=== PATIENT | female | born 1995 | race Caucasian/White ===

== ENCOUNTER 2025-07-14 15:15 | Outpatient (CLI) | payer BC, SELFPAY ==
--- OUTSIDE RECORDS SUMMARY | 2025-07-01 02:57 | XMS_ITS | Continuity of Care Document ---
Author Organization [facility] Phone Care Team Providers Care Supervisor [employer] Name Role Phone NO, DEFINED P Primary Care Unavailable AUDREY MENDIOLA Primary Attending AUDREY MENDIOLA Admitting NO, DEFINED P Unavailable Unavailable ALLERGIES AND ADVERSE REACTIONS ALLERGIES AND ADVERSE REACTIONS Code System Allergy Substance Adverse Reaction Date Reaction (Severity) Comment Status Reported By Updated By No Known Allergies [email or web address] on June 29, 2025 4:40:36 AM UTC RESULTS Patient: ALISA Short Date of : 1995 5 LABORATORY RESULTS ORDER 100: CBC AUTO W DIFF ( LOINC: 93128-7) ORDER DATE: June 29, 2025 4:42:00 AM UTC Specimen Source: EDTA Specimen Type: Blood specime n with EDTA PERFORMING LAB: [address] [id number] Result Comment: Final Result Date: June 29, 2025 4:57:00 AM UTC (TECH: AY) LOINC TEST FLAG RESULT REFERENCE RANGE UPDA HARLEY BY 6690-2 Leukocytes [#/volume] in Blood by Automated count H 15.2 K/ul 4.0 K/ul - 10.5 K/ul June 29, 2025 4:57:00 AM UTC (TECH: AY) 789-8 Erythrocytes [#/volume] in Blood by Automated count N 4.8 M/mm3 4.2 M/mm3 - 6.4 M/mm3 June 29, 2025 4:57:00 AM UTC (TECH: AY) 718-7 Hemoglobin [Mass/volume] in Blood N 14.0 gm/dl 12.5 gm/dl - 16.0 gm/dl June 29, 2025 4:57:00 AM UTC (TECH: AY) 22827-1 Hematocrit [Volume Fraction] of Blood N 43.1 % 37.0 % - 47.0 % June 29, 2025 4:57:00 AM UTC (TECH: AY) 787-2 Erythrocyte mean corpuscular volume [Entitic volume] by Automated count N 89.8 fl 78 fl - 100 fl June 29, 2025 4:57:00 AM UTC (TECH: AY) 785-6 Erythrocyte mean corpuscular hemoglobin [Entitic mass] by Automated count N 29.2 pg 27 pg - 31 pg June 29, 2025 4:57:00 AM UTC (TECH: AY) 786-4 Erythrocyte mean corpuscular hemoglobin concentration [Mass/volume] by Automated count N 32.5 g/dl 32 g/dl - 36 g/dl June 29, 2025 4:57:00 AM UTC (TECH: AY) 50219-4 Erythrocyte distribution width [Ratio] N 13.2 % 11.5 % - 14.0 % June 29, 2025 4:57:00 AM UTC (TECH: AY) 777-3 Platelets [#/volume] in Blood by Automated count N 268 K/ul 150 K/ul - 450 K/ul June 29, 2025 4:57:00 AM UTC (TECH: AY) 68649-1 Platelet mean volume [Entitic volume] in Blood by Automated count N 9.5 fl 6 fl - 9.5 fl June 29, 2025 4:57:00 AM UTC (TECH: AY) 09017-8 Neutrophils/100 leukocytes in Blood H 77.3 % 43 % - 65 % June 29, 2025 4:57:00 AM UTC (TECH: AY) 736-9 Lymphocytes/100 leukocytes in Blood by Automated count L 16.3 % 20.5 % - 45.5 % June 29, 2025 4:57:00 AM UTC (TECH: AY) 5905-5 Monocytes/100 leukocytes in Blood by Automated count L 5.3 % 5.5 % - 11.7 % June 29, 2025 4:57:00 AM UTC (TECH: AY) 713-8 Eosinophils/100 leukocytes in Blood by Automated count L 0.1 % 0.9 % - 2.9 % June 29, 2025 4:57:00 AM UTC (TECH: AY) 706-2 Basophils/100 leukocytes in Blood by Automated count N 0.5 % 0.2 % - 1.0 % June 29, 2025 4:57:00 AM UTC (TECH: AY) 65694-0 Immature granulocytes/100 leukocytes in Blood by Automated count N 0.5 % 0.0 % - 0.8 % June 29, 2025 4:57:00 AM UTC (TECH: AY) 96242-9 Nucleated cells [#/volume] in Blood N 0.0 % June 29, 2025 4:57:00 AM UTC (TECH: AY) 68645-1 Neutrophils [#/volume] in Blood H 11.7 K/uL 2.2 K/uL - 4.8 K/uL June 29, 2025 4:57:00 AM UTC (TECH: AY) 731-0 Lymphocytes [#/volume] in Blood by Automated count N 2.5 CELL/MCL 1.3 CELL/MCL - 2.9 CELL/MCL June 29, 2025 4:57:00 AM UTC (TECH: AY) 742-7 Monocytes [#/volume] in Blood by Automated count N 0.8 CELL/MCL 0.3 CELL/MCL - 0.8 CELL/MCL June 29, 2025 4:57:00 AM UTC (TECH: AY) 711-2 Eosinophils [#/volume] in Blood by Automated count N 0.0 CELL/MCL 0 CELL/MCL - 0.2 CELL/MCL June 29, 2025 4:57:00 AM UTC (TECH: AY) 704-7 Basophils [#/volume] in Blood by Automated count N 0.1 CELL/MCL 0.0 CELL/MCL - 1.0 CELL/MCL June 29, 2025 4:57:00 AM UTC (TECH: AY) 63598-9 Immature granulocytes [#/volume] in Blood N 0.07 K/ul June 29, 2025 4:57:00 AM UTC (TECH: AY) 36946-5 Nucleated cells [#/volume] in Blood N 0.00 K/uL June 29, 2025 4:57:00 AM UTC (TECH: AY) 60131-1 Manual Differential panel - Blood N NO June 29, 2025 4:57:00 AM UT (TECH: AY) ORDER 200: COMP METABOLIC PA FERNANDO (LOINC: 10073-2) ORDER DATE: June 29, 2025 4:42:00 AM UT Specimen Source: PLASMA Specimen Type: Plasma specim en PERFORMING LAB: [address] [id number] Result Comment: Final Result Date: June 29, 2025 5:38:00 AM UT (TECH: AY) LOINC TEST FLAG RESULT REFERENCE RANGE UPDA HARLEY BY 2951-2 Sodium [Moles/volume ] in Serum or Plasma N 143 mmol/L 136 mmol/L - 145 mmol/L June 29, 2025 5:15:00 AM UT (TECH: ME) 2823-3 Potassium [Moles/volume] in Serum or Plasma N 3.9 mmol/L 3.6 mmol/L - 5.0 mmol/L June 29, 2025 5:15:00 AM UT (TECH: ME) 2075-0 Chloride [Moles/volume] in Serum or Plasma N 105 mmol/L 98 mmol/L - 107 mmol/L June 29, 2025 5:15:00 AM UT (TECH: ME) 8-9 Carbon dioxide, tota l [Moles/volume] in Serum or Plasma N 30.9 mmol/L 21.0 mmol/L - 32.0 mmol/L June 29, 2025 5:15:00 AM UT (TECH: ME) 55170-1 Anion gap in Blood N 11.0 O ct2024 5:15:00 AM UTC (TECH: ME) 2345-7 Glucose [Mass/volume ] in Serum or Plasma N 112 mg/dl 70 mg/dl - 120 mg/dl June 29, 2025 5:15:00 AM UTC (TECH: ME) 6299-2 Urea nitrogen [Mass/volume] in Blood H 19 mg/dL 7 mg/dL - 18 mg/dL June 29, 2025 5:15:00 AM UT (TECH: ME) 82025-5 Creatinine [Moles/volume] in Blood N 0.8 mg/dL 0.6 mg/dL - 1.3 mg/dL June 29, 2025 5:15:00 AM UTC (TECH: ME) 21703-1 Glomerular filtratio n rate/1.73 sq M.predicted by Creatinine-based formula (MDRD) N 102 mlpermin 60 mlpermin June 29, 2025 5:15:00 AM [facility] (TECH: ME) 15860-0 Osmolality of Serum or Plasma by calculated by sum of electrolytes N 300 mosm/kg 275 mosm/kg - 301 mosm/kg June 29, 2025 5:15:00 AM [facility] (TECH: ME) 2885-2 Protein [Mass/volume ] in Serum or Plasma N 7.5 g/dl 6.4 g/dl - 8.2 g/dl June 29, 2025 5:38:00 AM [facility] (TECH: AY) 1751-7 Albumin [Mass/volume ] in Serum or Plasma N 3.6 g/dl 3.4 g/dl - 5.0 g/dl June 29, 2025 5:38:00 AM [facility] (TECH: AY) 2336-6 Globulin [Mass/volum e] in Serum N 3.9 June 29, 2025 5:38:00 AM [facility] (TECH: AY) 1759-0 Albumin/Globulin [Ma ss Ratio] in Serum or Plasma N 0.9 0.7 - 2 June 29, 2025 5:38:00 AM [facility] (TECH: AY) 58440-4 Calcium [Mass/volume ] in Serum or Plasma N 9.3 mg/dl 8.5 mg/dl - 10.5 mg/dl June 29, 2025 5:15:00 AM [facility] (TECH: ME) 1975-2 Bilirubin.total [Mass/volume] in Serum or Plasma N 0.20 mg/dL 0.10 mg/dL - 1.00 mg/dL June 29, 2025 5:38:00 AM [facility] (TECH: AY) 1920-8 Aspartate aminotransferase [Enzymatic activity/volume] in Serum or Plasma N 26 U/L 0 U/L - 37 U/L June 29, 2025 5:38:00 AM [facility] (TECH: AY) 1742-6 Alanine aminotransferase [Enzymatic activity/volume] in Serum or Plasma N 32 U/L 0 U/L - 65 U/L June 29, 2025 5:38:00 AM [facility] (TECH: AY) 1468-6 Alkaline phosphatase [Enzymatic activity/volume] in Serum or Plasma N 76 U/L 46 U/L - 116 U/L June 29, 2025 5:38:00 AM UTC (TECH: AY) ORDER 300: MAGNESIUM (LOINC: 88304-3) ORDER DATE: June 29, 2025 4:42:00 AM UTC Specimen Source: PLASMA Specimen Type: Plasma specim en PERFORMING LAB: [address] [id number] Result Comment: Final Result Date: June 29, 2025 5:38:00 AM UTC (TECH: AY) LOINC TEST FLAG [place] [address]-6 Magnesium [Mass/volume] in Serum or Plasma N 2.2 MG/DL 1.8 MG/DL - 2.4 MG/DL June 29, 2025 5:38:00 AM UT (TECH: AY) ORDER 400: TROPONIN I QUANT HIGH SENS. (LOINC: 61716-7) ORDER DATE: June 29, 2025 4:42:00 AM UTC Specimen Source: PLASMA Specimen Type: Plasma specim en PERFORMING LAB: [address] [id number] Result Comment: Final Result Date: June 29, 2025 5:15:00 AM UT (TECH: ME) LOINC TEST FLAG [place] [address]-0 Troponin I.cardiac [Mass/volume] in Serum or Plasma N <4 ng/L 0 ng/L - 51 ng/L June 29, 2025 5:15:00 AM UT (TECH: ME) ORDER 500: THYROID STIMULATI NG HORMONE (LOINC: 3016-3) ORDER DATE: June 29, 2025 4:42:00 AM UTC Specimen Source: PLASMA Specimen Type: Plasma specim en PERFORMING LAB: [address] [id number] Result Comment: Final Result Date: June 29, 2025 5:38:00 AM UT (TECH: AY) LOINC TEST FLAG RESULT REFERENCE RANGE UPDA HARLEY BY 3016-3 Thyrotropin [Units/volume] in Serum or Plasma N 3.13 mIU/L 0.36 mIU/L - 3.74 mIU/L June 29, 2025 5:38:00 AM UTC (TECH: AY) LABORATORY NARRATIVE RESULTS Information is not available RADIOLOGY RESULTS Information is not available PATHOLOGY NARRATIVE RESULTS Information is not available MICROBIOLOGY RESULTS No Micro Labs/Results Exist for Patient BLOOD ADMIN RESULTS Information is not available MEDICATIONS HOME MEDICATIONS Status RXNORM NDC Medication Dose Route Frequency Dates Comments Reported By Updated By Drug Treatment Unknown DISCHARGE MEDICATIONS Status RXNORM NDC Medication Dose Route Frequency Dates Dis pense Data Comments Physician Updated By No Discharge Medication Info rmation Available INPATIENT MEDICATIONS Status RXNORM NDC Medication Dose Route Frequency Rat e Quantity Dates Indication Dispense Data Comments [id number] [phone] metoprolol tartrat (LOPRESSOR) 5 MG/5 ML SOLN 5.0 MG INTRAV ENOUS ONE TIME ONLY (SCHEDULED DOSE) Start: Junobe r 2024 4:55:0 0 AM UT End: Octobe r 2024 4:55:0 0 AM UT MAURY Wiseman INTERFAC ED on June 29, 2025 4:54:00 AM UT SOCIAL HISTORY SOCIAL HISTORY - Smoking Status SNOMED-CT Social History Element Description Effective Dates Offered Cessation Comment Updated By [id number] Current Tobacco smoking status Never Smoked [email or web address] on June 29, 2025 4:40:51 AM UT SOCIAL HISTORY - Gender Sex: Female SOCIAL HISTORY - Status : status i nformation is not available Intention in Next Year: intention information is not available SOCIAL HISTORY - Assessments Code System Description Status Date Value of Assessment Updated By Comment Assessment Information is no t available SOCIAL HISTORY - [place] Affiliation [place] information is not av ailable SOCIAL HISTORY - Legal Sex Legal Sex information is not available SOCIAL HISTORY - Sexual Behavior Sexual Orientation Gender Identity SNOMED-CT Description SNO MED -CT Description Activity Level No of Partners Partner Type UpdatedBy Information is not available SOCIAL HISTORY - Occupation Occupation information is no t available VITAL SIGNS PATIENT VITAL SIGNS This section displays the mo st recent value for each vital sign as of July 01, 2025 6:57:22 AM UT Loinc Code Vital Sign Activity Date Result Updated By 8302-2 Body height June 29, 2025 4:39:32 AM UT 149.86 cm (59.0 in) [id number] on June 29, 2025 4:39:32 AM [facility] 98290-4 Body mass index (BMI ) [Ratio] June 29, 2025 4:39:32 AM UT 37.448 kg/m2 3140-1 Body Surface Area Derived From Formula June 29, 2025 4:39:32 AM UTC 1.7856 m2 8310-5 Body temperature June 29, 2025 6:00:00 AM UTC 99.1 [degF] 78993-0 Body weight Measured June 29, 2025 4:39:32 AM UTC 84.1 kg (185.0 lb) [id number] on June 29, 2025 4:39:32 AM UTC 8462-4 Diastolic blood pressure June 29, 2025 4:37:00 AM UTC 105.0 mm[Hg] 8867-4 Heart rate June 29, 2025 6:00:00 AM UTC 96 /min 82813-8 Oxygen saturation in Arterial blood by Pulse oximetry June 29, 2025 6:00:00 AM UTC 95.0 % 9279-1 Respiratory rate June 29, 2025 6:00:00 AM UTC 19 /min 8480-6 Systolic blood pressure June 29, 2025 4:37:00 AM UTC 137.0 mm[Hg] PEDIATRIC GROWTH CHART - VITAL SIGNS This section displays Head C ircumference Percentile, Weight for Length Percentile and BMI Percentile Loinc Code Pediatric Measure Age (Months) Result Updat ed By No Pediatric Growth Chart Pe rcentile Information Available. HEALTH CONCERNS Problems Concern Status Health Concern problem infor mation not available. Smoking Status Status Years Used Consumed packs p er day Health Concern smoking histo ry information not available. Family History Concern Status Health Concern family histor y information not available. ENCOUNTERS ENCOUNTER INFORMATION Reason for Visit ELEVATED HEART RATE, HIGH BP Admission June 29, 2025 4:23:00 AM UTC G [address] [id number] Discharge June 29, 2025 6:10:00 AM UTC D ISCHARGED TO HOME OR SELF CARE ENCOUNTER DIAGNOSES Notes information is not faviola ilable. Code System Diagnosis Onset Date Diagnosis information is not available. ABSTRACT DIAGNOSES Code System Diagnosis Updated By Abatement Date I10 ICD10 ESSENTIAL (PRIMA RY) HYPERTENSION [id number] on July 01, 2025 6:48:51 AM UTC R00.0 ICD10 TACHYCARDIA, UNSPECIFIED QHI 3291 on July 01, 2025 6:48:51 AM UTC I10 ICD10 ESSENTIAL (PRIMA RY) HYPERTENSION [id number] on July 01, 2025 6:48:52 AM UT R00.0 ICD10 TACHYCARDIA, UNSPECIFIED QHI 3291 on July 01, 2025 6:48:52 AM UT Z79.899 ICD10 OTHER QUALITY NURSE (CURRENT) DRUG THERAPY [id number] on July 01, 2025 6:48:52 AM UT CARE TEAM Care Supervisor [employer] Role DEFINED NO Primary Care AUDREY MENDIOLA Primary Attending AUDREY MENDIOLA Admitting DEFINED NO Referring CARE TEAM CARE md senior research scientist Role on Team Location Telecom Status Start Date End Jacob e Updated By NO DEFINED PRIMARY C Referring normal June 29, 2025 4:51:19 AM UT June 29, 2025 6:10:00 AM UT [id number] on June 29, 2025 4:51:19 AM [facility] MAURY Wiseman Attending normal June 29, 2025 4:51:19 AM UT June 29, 2025 6:10:00 AM UT [id number] on June 29, 2025 4:51:19 AM [facility] MAURY Wiseman Admitting normal June 29, 2025 4:51:19 AM UT June 29, 2025 6:10:00 AM UT [id number] on June 29, 2025 4:51:19 AM UT NO DEFINED PRIMARY C PCP normal June 29, 2025 4:24:38 AM UT June 29, 2025 6:10:00 AM UT [id number] on June 29, 2025 4:51:19 AM [facility]
[2025-07-14 17:22] LABS: Hematocrit 39.6 % (37.0-47.0); Hemoglobin 12.8 g/dL (12.2-16.2); Immature Granulocytes % 0.4 %; Mean Corpuscular HGB Conc 32.3 g/dL (31.8-35.4); Mean Corpuscular Hemoglobin 29.2 pg (27.0-31.2); Mean Corpuscular Volume 90.4 fl (81-99); Nucleated Red Blood Cells % 0 %; Platelet Count 330 K/mm3 (142-424); Red Blood Count 4.38 M/mm3 (4.20-5.40); Red Cell Distribution Width-SD 43.4 fL; White Blood Count 7.8 K/mm3 (4.8-10.8)
[2025-07-14 17:59] LABS: Alanine Aminotransferase 21 U/L (12-78); Albumin Level 3.9 g/dl (3.5-5.0); Albumin/Globulin Ratio 1.6 (1.1-1.8); Alkaline Phosphatase 75 U/L (38-126); Anion Gap 13.0 mEq/L (5-15); Aspartate Amino Transferase 26 U/L (14-36); Bilirubin,Total 0.7 mg/dl (0.2-1.3); Blood Urea Nitrogen 13 mg/dl (7-17); Calcium 9.2 mg/dl (8.4-10.2); Carbon Dioxide 27 mmol/L (22.0-30.0); Chloride 105 mmol/L (98-107); Creatinine,Serum 0.70 mg/dl (0.52-1.04); Estimated Glomerular Filt Rate 99 ml/min (>60); GFR (African American) 120 ML/MIN (>60); Globulin 2.5 g/dL (1.3-3.2); Glucose 89 mg/dl (74-100); Potassium 4.0 mmoL/L (3.5-5.1); Sodium 141 mmol/L (136-145); Total Protein,Serum 6.4 g/dl (6.3-8.2)
[2025-07-14 18:31] LABS: Thyroid Stimulating Hormone 1.32 uIU/mL (0.465-4.68)
[2025-07-15 13:41] LABS: Triiodothyronine (T3) Free 3.6 pg/mL (2.0-4.4)
== END 2025-07-14 23:59 | disposition home or self-care (01) ==
LOC: RT 15:16
PROVIDERS: PCP Nurse Practitioner Family; Visit Provider Nurse Practitioner Family
DX: R00.0 Tachycardia, unspecified (principal)
CPT/HCPCS: 80053; 84443; 84481; 85025; 93225; 93227

== ENCOUNTER 2025-08-09 13:58 | Outpatient (CLI) | payer BC, SELFPAY | END 2025-08-09 23:59 | disposition home or self-care (01) | LOC: RT 13:59 | PROVIDERS: PCP Nurse Practitioner Family; Visit Provider Physician Assistant | DX: I49.3 Ventricular premature depolarization (principal) | CPT/HCPCS: 93270 ==